=== PATIENT | female | born 1990 | race Caucasian/White ===

== ENCOUNTER 2019-05-16 11:06 | Outpatient (CLI) | payer OTHER, SELFPAY ==
[2019-05-16 11:47] LABS: Basophils Percent Auto 0.5 % (0.2-1.2); Eosinophils Absolute Auto 0.1 K/mm3 (0-0.3); Eosinophils Percent Auto 1.1 % (0-4.4); Hematocrit 35.6 % (37.0-47.0); Hemoglobin 11.6 g/dL (12.0-15.0); Immature Granulocyte Absolute 0.02 K/mm3 (0.00-0.031); Immature Granulocyte Percent A 0.3 % (0-0.5); Lymphocytes Absolute Auto 1.74 K/mm3 (0.9-3.2); Lymphocytes Percent Auto 26.3 % (18.3-44.2); Mean Corpuscular HGB Conc 32.6 g/dl (32-36); Mean Corpuscular Hemoglobin 27.1 pg (26-34); Mean Corpuscular Volume 83.2 fl (80-100); Mean Platelet Volume 10.2 fl (7.4-10.4); Monocytes Absolute Auto 0.5 K/mm3 (0.1-0.6); Monocytes Percent Auto 6.8 % (2.6-8.5); Neutrophils Absolute Auto 4.3 K/mm3 (1.3-6.7); Platelet Count Result 214 k/mm3 (150-375); Red Blood Count 4.28 M/mm3 (4.2-5.4); White Blood Count 6.6 K/mm3 (4.5-10.0)
[2019-05-16 11:53] LABS: Add Urine Microscopic? YES; Appearance Urine Clear (Clear); Bilirubin Urine Negative (Negative); Blood Urine Negative (Negative); Color Urine Yellow (Yellow); Glucose Urine UA Negative (Negative); Ketones Urine Negative (Negative); Leukocyte Esterase Ur Trace LEU/UL (NEGATIVE); Mucus Urine Rare /lpf; Nitrate Urine Negative (Negative); Protein Urine Negative (Negative); RBC Urine 0-2 /hpf (0-2); Specific Grav Ur 1.026 (1.001-1.035); Squamous Epithelial Cell Urine Moderate /hpf (Few); Urobilinogen Urine Negative mg/dL (<2.0); WBC Urine 0-3 /hpf (0-3)
[2019-05-16 12:25] LABS: Vitamin D 25 Hydroxy 39.1 ng/mL
[2019-05-16 12:32] LABS: Hepatitis B Surface Antigen Negative (Negative); Rubella IgG Antibody 15.2 IU/ML
[2019-05-16 12:47] LABS: HIV 1/2 Ab P24 Ag Result Negative (Negative); Hepatitis C Virus Antibody Negative (Negative)
[2019-05-17 07:48] LABS: Rapid Plasma Reagin Non-Reactive (NonReactive)
[2019-05-21 11:42] LABS: Hematocrit 37.5 % (35.0-45.0); Hemoglobin 12.4 g/dL (11.7-15.5); MCH 28.2 pg (27.0-33.0); MCV 85.3 FL (80.0-100.0); RDW 13.9 % (11.0-15.0)
== END 2019-05-16 11:07 | disposition home or self-care (01) ==
PROVIDERS: PCP Emergency Medicine; Visit Provider Obstetrics & Gynecology
DX: Z34.01 Encounter for supervision of normal first pregnancy, first trimester (principal)
CPT/HCPCS: 36415; 81001; 82306; 83021; 84443; 85025; 86592; 86703; 86762; 86787; 86803; 86900; 86901; 87086; 87340; G0432

== ENCOUNTER 2019-10-09 12:26 | Outpatient (CLI) | payer OTHER, SELFPAY ==
[2019-10-09 13:49] LABS: Basophils Percent Auto 0.4 % (0.2-1.2); Eosinophils Absolute Auto 0.1 K/mm3 (0-0.3); Eosinophils Percent Auto 1.2 % (0-4.4); Hematocrit 34.4 % (37.0-47.0); Hemoglobin 11.9 g/dL (12.0-15.0); Immature Granulocyte Absolute 0.05 K/mm3 (0.00-0.031); Immature Granulocyte Percent A 0.5 % (0-0.5); Lymphocytes Absolute Auto 2.11 K/mm3 (0.9-3.2); Mean Corpuscular HGB Conc 34.6 g/dl (32-36); Mean Corpuscular Hemoglobin 29.8 pg (26-34); Mean Corpuscular Volume 86.2 fl (80-100); Mean Platelet Volume 10.4 fl (7.4-10.4); Monocytes Absolute Auto 0.9 K/mm3 (0.1-0.6); Neutrophils Absolute Auto 7.4 K/mm3 (1.3-6.7); Neutrophils Percent Auto 69.9 % (45.5-73.1); Platelet Count Result 178 k/mm3 (150-375); Red Blood Count 3.99 M/mm3 (4.2-5.4); White Blood Count 10.6 K/mm3 (4.5-10.0)
[2019-10-09 14:01] LABS: Glucose 1 Hour PP 50gm Dose 76 mg/dL
== END 2019-10-09 12:27 | disposition home or self-care (01) ==
PROVIDERS: PCP Emergency Medicine; Visit Provider Obstetrics & Gynecology
DX: Z34.02 Encounter for supervision of normal first pregnancy, second trimester (principal)
CPT/HCPCS: 36415; 82947; 85025; 86850

== ENCOUNTER 2019-10-09 14:08 | Outpatient (CLI) | payer OTHER, SELFPAY ==
[2019-10-09] VITALS (7 sets, daily range): BP systolic 131–149; BP diastolic 82–91; PULSE 59–62
[2019-10-09 14:51] LABS: Basophils Absolute Auto 0.1 K/mm3 (0.0-0.1); Basophils Percent Auto 0.5 % (0.2-1.2); Eosinophils Absolute Auto 0.2 K/mm3 (0-0.3); Eosinophils Percent Auto 1.5 % (0-4.4); Hematocrit 34.7 % (37.0-47.0); Hemoglobin 11.9 g/dL (12.0-15.0); Immature Granulocyte Absolute 0.07 K/mm3 (0.00-0.031); Immature Granulocyte Percent A 0.7 % (0-0.5); Lymphocytes Absolute Auto 1.97 K/mm3 (0.9-3.2); Lymphocytes Percent Auto 19.1 % (18.3-44.2); Mean Corpuscular HGB Conc 34.3 g/dl (32-36); Mean Corpuscular Hemoglobin 29.9 pg (26-34); Mean Corpuscular Volume 87.2 fl (80-100); Mean Platelet Volume 10.5 fl (7.4-10.4); Monocytes Absolute Auto 0.9 K/mm3 (0.1-0.6); Monocytes Percent Auto 8.5 % (2.6-8.5); Neutrophils Absolute Auto 7.2 K/mm3 (1.3-6.7); Neutrophils Percent Auto 69.7 % (45.5-73.1); Platelet Count Result 177 k/mm3 (150-375); Red Blood Count 3.98 M/mm3 (4.2-5.4); Red Cell Distribution Width 13.1 % (11.5-14.5); White Blood Count 10.3 K/mm3 (4.5-10.0)
[2019-10-09 15:02] LABS: Add Urine Microscopic? YES; Appearance Urine Cloudy (Clear); Bilirubin Urine Negative (Negative); Blood Urine Negative (Negative); Color Urine Yellow (Yellow); Glucose Urine UA Negative (Negative); Ketones Urine Negative (Negative); Leukocyte Esterase Ur Negative LEU/UL (NEGATIVE); Mucus Urine Rare /lpf; Nitrate Urine Negative (Negative); Protein Urine 1+ mg/dL (Negative); RBC Urine 0-2 /hpf (0-2); Specific Grav Ur 1.026 (1.001-1.035); Squamous Epithelial Cell Urine Few /hpf (Few); Urobilinogen Urine Negative mg/dL (<2.0); WBC Urine 0-3 /hpf (0-3)
[2019-10-09 15:05] LABS: Alanine Aminotransferase 12 U/L (4-35); Albumin Level 3.6 g/dL (3.5-5.1); Alkaline Phosphatase 83 U/L (38-126); Anion Gap 6 mmol/L (8-16); Aspartate Amino Transferase 17 U/L (14-36); Bilirubin,Total 0.2 mg/dL (0.2-1.3); Blood Urea Nitrogen 8 mg/dL (7-17); Calcium 8.2 mg/dL (8.4-10.2); Carbon Dioxide 23 mmol/L (22-30); Chloride 106 mmol/L (98-107); Estimated Glomerular Filt Rate > 60; Glucose 73 mg/dL (65-105); Potassium 4.2 mmol/L (3.4-5.0); Sodium 135 mmol/L (137-145); Uric Acid 4.6 mg/dL (2.5-7.5)
[2019-10-09 15:09] LABS: Creatinine Urine 96.9 mg/dL; Total Protein Urine Random 13 mg/dL
[2019-10-09 15:12] LABS: Barbiturate Screen Urine Negative (Negative); Benzodiazepines Screen Urine Negative (Negative); Cannabinoid Screen Urine Positive (Negative); Cocaine Screen Urine Negative (Negative); Methadone Screen Urine Negative (Negative); Opiate Screen Urine Negative (Negative); Phencyclidine Screen Urine Negative (Negative)
[2019-10-09 15:13] LABS: Amphetamine Screen Urine Negative (Negative)
--- NOTE | 2019-10-09 15:53 | PC.NURSE ---
1408-Pt was sent over from office for elevated bp's and PIH workup
--- NOTE | 2019-10-09 15:54 | PC.NURSE ---
1521- called and read bp's and lab results. Orders received to discharge home with 24hr urine and instructions on taking bp twice daily and to call with greater than 160/110.
== END 2019-10-09 15:30 | disposition home or self-care (01) ==
LOC: ANHOBOP 14:16 → ANHLDR 14:17
PROVIDERS: PCP Emergency Medicine; Visit Provider Student in an Organized Health Care Education/Training Program
DX: O13.9 Gestational [pregnancy-induced] hypertension without significant proteinuria, unspecified trimester (principal)
CPT/HCPCS: 36415; 59025; 80053; 80307; 81001; 82570; 82947; 84156; 84550; 85025; 86850; 87086; 87088; 99199

== ENCOUNTER 2019-10-10 15:53 | Outpatient (NON) | payer OTHER, SELFPAY ==
[2019-10-10 15:59] VITALS: BMI 25.9
[2019-10-10 16:38] LABS: Collection Time Urine 24 HOURS
[2019-10-10 16:40] LABS: Patient Weight 142 Lbs
[2019-10-10 16:51] LABS: Creatinine Urine 92.2 mg/dL
[2019-10-10 17:08] LABS: Creatinine Clearance Urine 134.5 ml/min (75-125); Total Volume 24 Hour Urine 1000 ml
== END 2019-10-10 15:54 ==
LOC: ANHOBOP 15:56
PROVIDERS: PCP Emergency Medicine; Visit Provider Student in an Organized Health Care Education/Training Program
DX: O13.9 Gestational [pregnancy-induced] hypertension without significant proteinuria, unspecified trimester (principal); Z3A.00 Weeks of gestation of pregnancy not specified
CPT/HCPCS: 82575

== ENCOUNTER 2019-10-22 10:24 | Outpatient (RCR) | payer OTHER, SELFPAY ==
--- NOTE | ~2019-10-22 | US_ITS ---
EXAMINATION: US OB limited w BPP DATE: 10/22/2019 12:16 INDICATION: Gestational hypertension. Assess physical profile and amniotic fluid index. TECHNIQUE: Real-time pelvic ultrasound was performed. The interpreting radiologist was not present fo r the study. COMPARISON: None. FINDINGS: There is a single living fetus in vertex presentation. The placenta is posterior. heart rate i s 131 beats per minute (bpm). Normal amniotic fluid index of 10.3 cm (5th%-95%: 8.6-24.2 cm at 32 wee ks estimated gestational age) Biophysical profile performed by the technologist: breathing (30 sec sustained breathing in 30 minutes): 2 out of 2 movement (3 gross body movements in 30 minutes): 2 out of 2 tone (one episode of dliuafq-ulsvozche-xxkcmef limb movement): 2 out of 2 Amniotic fluid pocket (2 cm): 2 out of 2 Total score: 8 out of 8 IMPRESSION: 1. Single living fetus in vertex presentation with heart rate of 131 bpm. 2. Biophysical profile 8 out of 8. 3. Normal amniotic fluid index of 10.3 cm. Reviewed, dictated and finalized at location B.
[2019-10-22 11:28] LABS: Basophils Percent Auto 0.4 % (0.2-1.2); Eosinophils Percent Auto 0.2 % (0-4.4); Hematocrit 34.3 % (37.0-47.0); Hemoglobin 11.9 g/dL (12.0-15.0); Immature Granulocyte Absolute 0.03 K/mm3 (0.00-0.031); Immature Granulocyte Percent A 0.4 % (0-0.5); Lymphocytes Absolute Auto 0.87 K/mm3 (0.9-3.2); Lymphocytes Percent Auto 10.5 % (18.3-44.2); Mean Corpuscular HGB Conc 34.7 g/dl (32-36); Mean Corpuscular Hemoglobin 30.7 pg (26-34); Mean Corpuscular Volume 88.4 fl (80-100); Mean Platelet Volume 10.5 fl (7.4-10.4); Monocytes Absolute Auto 0.7 K/mm3 (0.1-0.6); Monocytes Percent Auto 8.4 % (2.6-8.5); Neutrophils Absolute Auto 6.7 K/mm3 (1.3-6.7); Neutrophils Percent Auto 80.1 % (45.5-73.1); Platelet Count Result 152 k/mm3 (150-375); Red Blood Count 3.88 M/mm3 (4.2-5.4); Red Cell Distribution Width 13.4 % (11.5-14.5); White Blood Count 8.3 K/mm3 (4.5-10.0)
[2019-10-22 11:42] LABS: Alanine Aminotransferase 13 U/L (4-35); Albumin Level 3.8 g/dL (3.5-5.1); Alkaline Phosphatase 86 U/L (38-126); Anion Gap 5 mmol/L (8-16); Aspartate Amino Transferase 21 U/L (14-36); Bilirubin,Total 0.5 mg/dL (0.2-1.3); Blood Urea Nitrogen 8 mg/dL (7-17); Calcium 8.2 mg/dL (8.4-10.2); Carbon Dioxide 24 mmol/L (22-30); Chloride 104 mmol/L (98-107); Estimated Glomerular Filt Rate > 60; Glucose 81 mg/dL (65-105); Potassium 3.8 mmol/L (3.4-5.0); Sodium 133 mmol/L (137-145)
[2019-10-22 12:15] VITALS: BP 137/84; PULSE 91
[2019-10-22 12:22] LABS: HIV 1/2 Ab P24 Ag Result Negative (Negative)
[2019-10-22 13:24] LABS: Collection Time Urine 24 HOURS
[2019-10-22 13:45] VITALS: BMI 27.3
[2019-10-22 13:54] LABS: Patient Weight 149 Lbs; Total Protein Urine Random 9 mg/dL
[2019-10-22 14:16] LABS: Creatinine Clearance Urine 165.1 ml/min (75-125); Total Protein Urine 24 Hr 135 MG/DAY (28-141); Total Volume 24 Hour Urine 1500 ml
[2019-10-23 11:41] LABS: Rapid Plasma Reagin Non-Reactive (NonReactive)
== END 2019-11-21 09:58 | disposition home or self-care (01) ==
LOC: ANHOBOP 10:24
PROVIDERS: Visit Provider Obstetrics & Gynecology
DX: O16.3 Unspecified maternal hypertension, third trimester (principal); E66.3 Overweight; Z11.4 Encounter for screening for human immunodeficiency virus [HIV]; Z3A.32 32 weeks gestation of pregnancy
CPT/HCPCS: 36415; 59025; 76815; 76819; 80053; 81050; 82575; 84156; 85025; 86592; 86703; G0432

== ENCOUNTER 2019-11-19 11:33 | Outpatient (RCR) | payer OTHER, SELFPAY ==
[2019-11-05 11:41] VITALS: BP 129/80; PULSE 80
[2019-11-12 16:42] VITALS: BP 122/76; PULSE 73
--- NOTE | ~2019-11-19 | US_ITS ---
EXAMINATION: US OB limited DATE: 11/05/2019 12:02 INDICATION: Gestational hypertension during third trimester TECHNIQUE: Real-time ultrasound of the pelvis was performed. The interpreting radiologist was not pre sent for the study. COMPARISON: 10/22/2019 FINDINGS: There is a single living fetus in vertex presentation. The placenta is posterior fundal. heart rate is 133 beats per minute (bpm). The amniotic fluid index is 15.0 cm, which is normal (5th%-95%: 8.1-24.8 cm at 34 weeks estimated gestational age). IMPRESSION: 1. Single living fetus in vertex presentation with heart rate of 133 bpm. 2. Normal amniotic fluid index of 15.0 cm. Reviewed, dictated and finalized at location A. IMPRESSION: 1. Single living fetus in vertex presentation with heart rate of 133 bpm . 2. Normal amniotic fluid index of 15.0 cm.
[2019-11-19 12:08] VITALS: BP 130/83; PULSE 88
== END 2019-11-21 09:57 | disposition home or self-care (01) ==
LOC: ANHOBOP 11:33
PROVIDERS: Visit Provider Obstetrics & Gynecology
DX: O16.3 Unspecified maternal hypertension, third trimester (principal); Z3A.34 34 weeks gestation of pregnancy; Z3A.35 35 weeks gestation of pregnancy; Z3A.36 36 weeks gestation of pregnancy
CPT/HCPCS: 36415; 59025; 76815; 80053; 83615; 84443; 84550

== ENCOUNTER 2019-11-19 13:06 | Outpatient (CLI) | payer OTHER, SELFPAY ==
[2019-11-19 14:19] LABS: Alanine Aminotransferase 13 U/L (4-35); Albumin Level 3.6 g/dL (3.5-5.1); Alkaline Phosphatase 95 U/L (38-126); Anion Gap 9 mmol/L (8-16); Aspartate Amino Transferase 31 U/L (14-36); Bilirubin,Total 0.3 mg/dL (0.2-1.3); Blood Urea Nitrogen 11 mg/dL (7-17); Calcium 8.7 mg/dL (8.4-10.2); Carbon Dioxide 21 mmol/L (22-30); Chloride 106 mmol/L (98-107); Estimated Glomerular Filt Rate > 60; Glucose 77 mg/dL (65-105); Potassium 4.5 mmol/L (3.4-5.0); Sodium 136 mmol/L (137-145); Uric Acid 4.3 mg/dL (2.5-7.5)
[2019-11-19 14:27] LABS: Lactate Dehydrogenase 528 U/L (313-618)
== END 2019-11-19 13:07 | disposition home or self-care (01) ==
PROVIDERS: Visit Provider Student in an Organized Health Care Education/Training Program
DX: O16.9 Unspecified maternal hypertension, unspecified trimester (principal); Z3A.00 Weeks of gestation of pregnancy not specified
CPT/HCPCS: 36415; 80053; 83615; 84443; 84550

== ENCOUNTER 2019-11-21 06:19 | Inpatient (IN) | payer OTHER, SELFPAY ==
[2019-11-21] VITALS (196 sets, daily range): BP systolic 103–160; BP diastolic 55–122; PULSE 56–93; RESP 14; TEMP 36.2–37.5; O2SAT 97–100; BMI 28.4
[2019-11-21 07:03] LABS: Basophils Percent Auto 0.4 % (0.2-1.2); Eosinophils Absolute Auto 0.1 K/mm3 (0-0.3); Eosinophils Percent Auto 1.3 % (0-4.4); Hematocrit 31.3 % (37.0-47.0); Immature Granulocyte Absolute 0.04 K/mm3 (0.00-0.031); Immature Granulocyte Percent A 0.4 % (0-0.5); Lymphocytes Absolute Auto 1.96 K/mm3 (0.9-3.2); Mean Corpuscular HGB Conc 35.1 g/dl (32-36); Mean Corpuscular Hemoglobin 30.6 pg (26-34); Mean Corpuscular Volume 87.2 fl (80-100); Mean Platelet Volume 10.5 fl (7.4-10.4); Monocytes Absolute Auto 0.6 K/mm3 (0.1-0.6); Monocytes Percent Auto 5.6 % (2.6-8.5); Neutrophils Absolute Auto 7.6 K/mm3 (1.3-6.7); Neutrophils Percent Auto 73.3 % (45.5-73.1); Platelet Count Result 175 k/mm3 (150-375); Red Blood Count 3.59 M/mm3 (4.2-5.4); Red Cell Distribution Width 12.6 % (11.5-14.5); White Blood Count 10.3 K/mm3 (4.5-10.0)
[2019-11-21] MEDS: LACTATED RINGERS 1,000 ML 125 ML IV CONT ×4 (07:13→17:21)
[2019-11-21] MEDS: OXYTOCIN 30 UNITS/NS 500 ML 30 UNITS/500 ML BAG IV CONT (07:14)
[2019-11-21 07:15] LABS: Alanine Aminotransferase 15 U/L (4-35); Albumin Level 3.8 g/dL (3.5-5.1); Alkaline Phosphatase 96 U/L (38-126); Anion Gap 6 mmol/L (8-16); Aspartate Amino Transferase 21 U/L (14-36); Bilirubin,Total 0.4 mg/dL (0.2-1.3); Blood Urea Nitrogen 15 mg/dL (7-17); Calcium 8.6 mg/dL (8.4-10.2); Carbon Dioxide 22 mmol/L (22-30); Chloride 108 mmol/L (98-107); Estimated Glomerular Filt Rate > 60; Glucose 101 mg/dL (65-105); Potassium 3.8 mmol/L (3.4-5.0); Sodium 136 mmol/L (137-145)
--- NOTE | 2019-11-21 07:34 | LDADM ---
This patient, Kassie Tadeo, was admitted to Labor/Delivery/Recovery 105 on 11/21/19 at 06:19. Plans for labor, pain management and were discussed with patient. Patient/family oriented to hospital policies and general routines including ID bracelet, bed and alarms, visiting hours, pain management, procedures, bathroom and other care routines, personal items, smoking policy, room service/diet and guest tray routines, infant security routines, and visiting hours. Patient/Family are encouraged to report perceived risks to care and to ask questions if they do not understand what they are told or what they should do. See OBIX for further documentation.
--- NOTE | 2019-11-21 09:33 | PM.IMHP ---
H&P: HPI History of Present Illness Date/Time: 11/21/19 09:33 Patient 29-year-old last menstrual period March 01, 2019. Patient is currently 37 weeks gestation with an estimated due date of December 12, 2019. Patient is dated by an ultrasound on April 25, 2019 at 7 weeks gestation. Patient presents to Labor and delivery for scheduled induction of labor secondary to gestational hypertension. Patient's 1st elevated blood pressure during this was approximately 19 weeks gestation. Patient has had intermittent elevated blood pressures since then. All laboratory testing has been within normal limits. All surveillance has also been within normal limits. Patient reports feeling well today. Reports occasional contractions. Denies any vaginal bleeding or leakage of fluid. Reports good movement. Patient also denies any headache, chest pain, shortness of breath, nausea, vomiting, right upper quadrant tenderness, or visual disturbances. Chief complaint: Induction of Labor Narrative: Kassie Tadeo is a 29 year old female Review of Systems Review of Systems: All systems reviewed & are unremarkable except as noted in HPI and below Constitutional: Constitutional: Reports as per HPI, Reports no additional constitutional complaints, Denies chills, Denies fever(s), Denies headache(s) and Denies night sweats Eyes: Eyes: Reports as per HPI and Reports no additional eye complaints ENT: Reports system reviewed and no additional complaints, except as documented, Reports as per HPI, Reports Normal hearing present and Denies headache(s) Cardiovascular: Cardiovascular: Reports as per HPI, Reports no additional cardiovascular complaints, Denies chest pain and Denies dyspnea Respiratory: Respiratory: Reports as per HPI, Reports no additional respiratory complaints, Denies cough and Denies dyspnea Gastrointestinal: Gastrointestinal: Reports as per HPI, Reports no additional gastrointestinal complaints, Denies abdominal pain, Denies change in bowel habits, Denies change in stool character, Denies nausea and Denies vomiting Genitourinary: Genitourinary: Reports no additional female genitourinary complaints, Reports as per HPI, Denies abnormal vaginal bleeding, Denies genital lesions, Denies hot flashes, Denies dyspareunia, Denies pelvic pain, Denies sexual dysfunction, Denies urinary incontinence, Denies vaginal discharge, Denies vaginal dryness and Denies vaginal odor Musculoskeletal: Musculoskeletal: Reports no additional musculoskeletal complaints and Reports as per HPI Integumentary/Breasts: Skin/Breast: Reports system reviewed and no additional complaints, except as docu, Reports as per HPI, Denies breast pain and Denies nipple discharge Neurologic: Reports system reviewed and no additional complaints, except as documented, Reports as per HPI, Reports Normal hearing present and Denies headache(s) Psychiatric: Psychiatric: Reports no additional psychiatric complaints, Reports as per HPI, Denies anxiety and Denies depression Endocrine: Endocrine: Reports no additional endocrine complaints and Reports as per HPI Hematologic/Lymphatic: Hematologic/Lymphatic: Reports no additional hematologic/lymphatic complaints and Reports as per HPI Allergic/Immunologic: Allergic/Immunologic: Reports no additional allergic/immunologic complaints and Reports as per HPI PMFSH Past Medical History Medical History Anxiety Encounter for supervision of normal primigravida in first trimester, antepartum Encounter for supervision of normal primigravida in second trimester, antepartum History of illicit drug use Vaginal delivery x 3 Family History Family History Other Unknown family medical history Social History Social History Years smoked: 12 Smoking status: Current every day smok
[2019-11-21 10:45] LABS: Amphetamine Screen Urine Negative (Negative); Barbiturate Screen Urine Negative (Negative); Benzodiazepines Screen Urine Negative (Negative); Cannabinoid Screen Urine Positive (Negative); Cocaine Screen Urine Negative (Negative); Methadone Screen Urine Negative (Negative); Opiate Screen Urine Negative (Negative); Phencyclidine Screen Urine Negative (Negative)
--- NOTE | 2019-11-21 10:56 | WPDANESEPP ---
Anes - Eval Pre Procedure Procedure: labor epidural Date/Time: 11/21/19 10:56 Surgeon: edith Preop Diagnosis: pain during labor Pre Op Diagnosis: Induction of Labor Patient Data Age: 29 Gender: F Height: 1.57 m Weight: 70.5 kg Last Vital Signs Temp 36.8 C 11/21/19 09:45 Pulse 69 11/21/19 10:55 BP 133/76 11/21/19 10:55 Pulse Ox 99 11/21/19 10:52 Allergies Allergy/AdvReac Type Severity Reaction Status Date / Time No Known Allergies Allergy Verified 11/19/19 12:17 Home Medications Medication Instructions Recorded Confirmed Type PNV cmb#95-ferrous fumarate-FA 1 tablet PO DAILY 11/15/19 11/21/19 History [] Laboratory Tests 11/21/19 11/21/19 11/21/19 06:51 06:51 06:51 WBC 10.3 K/mm3 H K/mm3 (4.5-10.0) RBC 3.59 M/mm3 L M/mm3 (4.2-5.4) Hgb 11.0 g/dL L g/dL (12.0-15.0) Hct 31.3 % L % (37.0-47.0) MCV 87.2 fl fl (80-100) MCH 30.6 pg pg (26-34) MCHC 35.1 g/dl g/dl (32-36) RDW 12.6 % % (11.5-14.5) Plt Count 175 k/mm3 k/mm3 (150-375) MPV 10.5 fl H fl (7.4-10.4) Immature Gran % (Auto) 0.4 % % (0-0.5) Neut % (Auto) 73.3 % H % (45.5-73.1) Lymph % (Auto) 19.0 % % (18.3-44.2) [place] % (Auto) 5.6 % % (2.6-8.5) Eos % (Auto) 1.3 % % (0-4.4) Baso % (Auto) 0.4 % % (0.2-1.2) Lymph # (Auto) 1.96 K/mm3 K/mm3 (0.9-3.2) [place] # (Auto) 0.6 K/mm3 K/mm3 (0.1-0.6) Eos # (Auto) 0.1 K/mm3 K/mm3 (0-0.3) Baso # (Auto) 0.0 K/mm3 K/mm3 (0.0-0.1) Abs Immat Gran (auto) 0.04 K/mm3 H K/mm3 (0.00-0.031) Absolute Neuts (auto) 7.6 K/mm3 H K/mm3 (1.3-6.7) Absolute Nucleated RBC 0.0 K/mm3 K/mm3 (0.0-0.012) Nucleated RBC % 0.0 % % (0.0-0.2) Sodium Potassium Chloride Carbon Dioxide Anion Gap BUN Creatinine Estim Creat Clear Calc Estimated GFR Glucose Calcium Total Bilirubin AST ALT Alkaline Phosphatase Total Protein Albumin Urine Opiates Screen Urine Methadone Screen Ur Barbiturates Screen Ur Phencyclidine Scrn Ur Amphetamine Screen U Benzodiazepines Scrn Urine Cocaine Screen U Cannabinoids Screen RPR Pending Blood Type AB Positive Antibody Screen Negative 11/21/19 11/21/19 06:51 08:00 WBC RBC Hgb Hct MCV MCH MCHC RDW Plt Count MPV Immature Gran % (Auto) Neut % (Auto) Lymph % (Auto) [place] % (Auto) Eos % (Auto) Baso % (Auto) Lymph # (Auto) [place] # (Auto) Eos # (Auto) Baso # (Auto) Abs Immat Gran (auto) Absolute Neuts (auto) Absolute Nucleated RBC Nucleated RBC % Sodium 136 mmol/L L mmol/L (137-145) Potassium 3.8 mmol/L mmol/L (3.4-5.0) Chloride 108 mmol/L H mmol/L (98-107) Carbon Dioxide 22 mmol/L mmol/L (22-30) Anion Gap 6 mmol/L L mmol/L (8-16) BUN 15 mg/dL mg/dL (7-17) Creatinine 0.60 mg/dL L mg/dL (0.7-1.0) Estim Creat Clear Calc Not Reportable Estimated GFR > 60 (59 - ) Glucose 101 mg/dL mg/dL (65-105) Calcium 8.6 mg/dL mg/dL (8.4-10.2) Total Bilirubin 0.4 mg/dL mg/dL (0.2-1.3) AST 21 U/L U/L (14-36) ALT 15 U/L U/L (4-35) Alkaline Phosphatase 96 U/L U/L (38-126) Total Protein 7.0 g/dL g/dL (6.3-8.2) Albumin 3.8 g/dL g/dL
--- NOTE | 2019-11-21 19:39 | PM.OBPRVD ---
OB - Delivery Note Procedure Delivery date: 11/21/19 Procedure: Patient is a 29-year-old G4 now P4004 who presented to labor and delivery on 11/21/2019 at 37 weeks gestation for scheduled induction of labor secondary to gestational hypertension. Patient was started on Pitocin for labor induction. Cervical exam was approximately 2 cm dilated at time of presentation. Artificial rupture membranes was performed at 9:30 a.m. Clear fluid was noted. Patient continued to make progressive cervical change throughout the remainder of the morning and afternoon. She became uncomfortable and requested an epidural for pain management which was placed without difficulty. Pitocin was continuously titrated throughout the afternoon and evening. She continued to make cervical change and was noted to be fully dilated at 7:03 p.m. Patient was encouraged to push and found be pushing well. She was prepped and draped for delivery. At 7:25 p.m., patient delivered head atraumatically without difficulty. Occiput restituted to maternal left side. The 's neck, shoulders, and rest of body delivered quickly afterwards. A nuchal cord x1 was noted and reduced. was crying spontaneously. 's nose and mouth were suctioned with bulb suction. Delayed cord clamping was performed for approximately 60 seconds. The cord was clamped and cut and the infant was placed on maternal abdomen where care was assumed by awaiting nursing staff. A segment of cord was collected for cord gases. Cord blood was collected. The placenta was delivered spontaneously and intact. A moderate amount of blood was noted gushing from vagina. Vigorous bimanual massage was performed and bleeding subsided. Straight catheterization was performed with a minimal amount of clear urine returned. No further bleeding was noted. On inspection no lacerations were noted. Estimated blood loss for entire delivery was 300 cc. The patient was cleansed and dried. The infant was a live-born male infant, Apgars 8 and 9, weighing 5 lb 12 oz. Both mother and baby doing well at end of delivery. events: Induced HTN and Labor Induction Induction method: per pitocin protocol Delivery augmentation: rupture of membranes Delivery monitor: external FHT and external uterine Route of delivery: Episiotomy description: None Laceration description: None Specimen: Yes (placenta and cord, cord blood, cord gases) Estimated blood loss (mL): 300 Anesthesia type: Epidural Disposition: floor Complications: No immediate complications Baby Date of : 11/21/19 Time of : 19:25 Weeks of gestation at delivery: 37 Infant gender: Male Weight (pounds): 5 Weight (ounces): 12 presentation: vertex position: Left Occiput Anterior Placenta delivery description: Spontaneous cord vessel description: 3 Vessels, Nuchal Cord (x1) and Clamped/Cut score one minute: 8 score five minutes: 9
--- NOTE | 2019-11-21 19:48 | WPDHPUPDATE1 ---
History and Physical Update Update Date/Time: 11/21/19 19:48 History and Physical has been reviewed, including an updated exam of the patient. There are NO changes in the patient's condition. Risks, benefits, and alternatives have been discussed and questions answered. Patient agrees to proceed with procedure.
[2019-11-21] MEDS: OXYTOCIN 30 UNITS/NS 500 ML 30 UNITS/500 ML BAG 125 UNITS IV CONT (19:58)
[2019-11-21] MEDS: IBUPROFEN 600 MG TABLET PO (20:58)
[2019-11-22] MEDS: ACETAMINOPHEN 325 MG TABLET 650 MG PO (00:42)
[2019-11-22] MEDS: IBUPROFEN 600 MG TABLET PO ×3 (04:51→16:14)
[2019-11-22 05:20] LABS: Hematocrit 30.3 % (37.0-47.0); Hemoglobin 10.3 g/dL (12.0-15.0)
[2019-11-22] MEDS: MULTIVIT/MIN/PREN/FOL AC/IRON TABLET 1 TAB PO (07:24)
[2019-11-22] MEDS: DOCUSATE SODIUM 100 MG CAPSULE PO ×2 (07:25→16:15)
[2019-11-22 07:28] VITALS: BP 126/91; PULSE 75; RESP 18; TEMP 36.4
--- NOTE | 2019-11-22 08:16 | WPDANLDPN2 ---
Anes-Prog Note L&D Date/Time: 11/22/19 08:16 Comfortable throughout: labor and delivery Neuraxial method: epidural Epidural/Spinal procedure site: clean & non-tender Neuro status: Neuro function grossly intact. Cardiovascular status: normal Respiratory status: normal Airway patency: baseline Mental status: baseline Post-Op hydration status: normal Vital Signs: Last Vital Signs Temp 36.4 C 11/22/19 07:28 Pulse 75 11/22/19 07:28 Resp 18 11/22/19 07:28 BP 126/91 H 11/22/19 07:28 Pulse Ox 100 11/21/19 22:45 Pain score (VAS): 2 I/O: Intake & Output 11/21/19 11/22/19 11/22/19 23:59 07:59 15:59 Intake Total 1100 Output Total 900 Balance 200 Post-procedural complaints: none Patient feedback: Patient satisfied with anesthetic care.
--- NOTE | 2019-11-22 08:44 | P.PNOB_ITS ---
OB - PN: Subj Subjective Date/time seen: 11/22/19 08:44 Patient doing well this morning. Denies significant pain. Well controlled with medication. Denies any headache, chest pain, shortness of breath, nausea, v omiting, right upper quadrant tenderness, or visual disturbances. Minimal lochia. Ambulating well. OB - PN: Obj Data Labs CBC & Chem 7: 11/22/19 04:58 11/21/19 06:51 Labs: Laboratory Results - last 24 hr 11/21/19 11/22/19 08:00 04:58 Hgb 10.3 L Hct 30.3 L Urine Opiates Screen Negative Urine Methadone Screen Negative Ur Barbiturates Screen Negative Ur Phencyclidine Scrn Negative Ur Amphetamine Screen Negative U Benzodiazepines Scrn Negative Urine Cocaine Screen Negative U Cannabinoids Screen Positive A OB - PN A/P Assessment and Plan (1) Normal spontaneous vaginal delivery: Code(s): O80 - Encounter for full-term uncomplicated delivery Status: Acute Assessment and Plan: PPD #1 doing well continue routine care anticipate dc home tomorrow (2) Gestational hypertension: Code(s): O13.9 - Gestational [-induced] hypertension without significant proteinuria, unspecified trimester Status: Acute Assessment and Plan: pt with GHTN BP 120-140z/70-90s asymptomatic will continue to monitor Time Spent With Patient Time: Total time spent is greater than 50% in coordination of care (as documented) at patient's floor/unit and/or counseling patient: Exam Const: General: comfortable and no acute distress GI: GI Palp: Yes Soft to palpation, No Tenderness to palpation present (GI) and Yes Other GI palpation findings present (fundus below umbilicus) Extrem: Right lower extremity: edema Left lower extremity: edema Other: no calf tenderness
[2019-11-22 09:15] LABS: Rapid Plasma Reagin Non-Reactive (NonReactive)
--- NOTE | 2019-11-22 10:16 | PCCCNOTE ---
Addendum entered by TRACE Arredondo 11/25/19 14:16: Received call from [facility] worker Estela who reports the Department will contact mom to offer services due to her past history of substance use. Per Estela she will reach out to pt. today. Estela is aware baby's meconium is negative for all substances. [facility] be contacted at [phone] Original Note: Care Coordination Consult Met with pt. today who reports she lives at home with FOB Duong. This is Duong and pt.'s 4th child. Pt. reports she has all necessary belongings at home including a crib, car seat, bottles, diapers and other supplies. Pt. reports she plans to breast feed or bottle feed at discharge. Pt. has supportive family including Duong. Pt. states she has used WIC and healthy family services before and will likely apply again. Pt. was provided resources. Pt. reports she was not aware that she tested positive for THC at admission. Pt. reports that she does actively use marijuana and does so recreationally. Pt. reports she does marijuana for fun, denies any other substance use. Pt. does state she does not smoke in front of her other children. Pt. denies that she over uses marijuana or is addicted to the substance. Pt. denies any services or supports regarding substance use cessation. [facility] online report was submitted reference ID [id number]. Will follow.
[2019-11-22 16:00] VITALS: BP 124/88; PULSE 65; RESP 18; TEMP 36.8
[2019-11-22 19:35] VITALS: BP 142/95; PULSE 74; RESP 14; TEMP 36.7; O2SAT 100
[2019-11-23 07:00] VITALS: BP 133/91; PULSE 62; RESP 18; TEMP 36.9
[2019-11-23] MEDS: DOCUSATE SODIUM 100 MG CAPSULE PO (07:10)
[2019-11-23] MEDS: MULTIVIT/MIN/PREN/FOL AC/IRON TABLET 1 TAB PO (07:10)
[2019-11-23] MEDS: IBUPROFEN 600 MG TABLET PO (07:10)
--- NOTE | 2019-11-23 10:34 | PM.OBPNVD ---
OB - PN: Subj Subjective Date/time seen: 11/23/19 10:34 Interval history: Doing well. Pain well controlled Ambulating and urinating without difficulty. Tolerating regular diet Denies [place]/Cp/SOB/Vision problems. Lochia is less than her menses baby boy doing well and BF. Patient comments: pain well controlled, tolerating diet and flatus present [place] baby status: doing well and nursing well feeding status: exclusively breast feeding OB - PN: Obj Data Labs CBC & Chem 7: 11/22/19 04:58 11/21/19 06:51 OB - PN A/P Plan day: 2 Plan: routine care, discharge home, follow up 6 weeks (post exam) and other (f/u in 1 week for Bp checkup) Comments: BF instructed. Desires infant to be circumcised. procedure discussed as well as risk i.e infection/bleeding/injury to penis. pt voiced verbalized. Informed consent obtained. Time Spent With Patient Time: Total time spent is greater than 50% in coordination of care (as documented) at patient's floor/unit and/or counseling patient: Time with patient: 15 - 25 minutes Review of Systems Constitutional: Constitutional: Reports as per HPI, Denies chills and Denies headache(s) Cardiovascular: Cardiovascular: Reports as per HPI Respiratory: Respiratory: Reports as per HPI, Denies chest congestion, Denies cough and Denies dyspnea Gastrointestinal: Gastrointestinal: Reports as per HPI, Denies abdominal pain, Denies nausea and Denies vomiting Genitourinary: Genitourinary: Reports no additional female genitourinary complaints Exam Const: General: comfortable, no acute distress, alert and awake Orientation/consciousness: patient oriented x3 Resp: Effort & Inspection: normal respiratory effort Auscultation: clear to auscultation bilaterally Cardio: Rate: regular rate GI: Auscultation: normal bowel sounds Other: Fundus firm below umbilicus
--- NOTE | 2019-11-23 10:37 | PM.OBDSVD ---
DS: Admitting Diagnosis Admitting Diagnosis Admitting Diagnosis: Induction of Labor DS: Discharge Diagnosis Discharge Diagnosis (1) Normal spontaneous vaginal delivery: Code(s): O80 - Encounter for full-term uncomplicated delivery Status: Acute OB - DS: Summary OB Procedures : None OB Procedures Intrapartum: Spontaneous Vag Delivery OB Procedures: : None Peripartum Data Infant Delivery Method: Natural Vaginal complications: none Status at Discharge Functional status at discharge: independent ambulation Overall status at discharge: patient is progressing back to baseline Time Spent with Patient Time attestation: Total time spent providing and/or coordinating discharge services: Time spent: Less than 30 minutes Exam Const: General: comfortable, no acute distress, alert and awake Orientation/consciousness: patient oriented x3 Limitations: no limitations Resp: Effort & Inspection: normal respiratory effort Auscultation: clear to auscultation bilaterally Cardio: Rate: regular rate GI: Inspection: non-distended GI Palp: Yes Soft to palpation and No Tenderness to palpation present (GI) Auscultation: normal bowel sounds Other: Fundus firm below umbilicus Psych: Appearance: grossly normal Affect: normal affect Attitude: cooperative Thought content: Yes Normal thought content present Judgement: Good judgement present (Psych) DS: Data Data Completed and Pending Pending studies at discharge: Pending at discharge 11/21/19 19:56 Surgical [PTH] Routine Discharge Plan Discharge Attending physician on discharge: Telma Delgadillo Discharging Clinician: Telma Delgadillo Patient Disposition: Home, Self-Care Activity: may drive after 2 weeks, as tolerated and pelvic rest Diet: regular Discharge Instructions: Education: Mom and Baby Guide Given to: Mother Follow-Up: Call your delivering provider's office for an appointment to be seen in: 4-6 Weeks Mom and baby should come to the [facility] for the follow-up appointment. Appointment Date/Time: November 25, 2019 at 11:30 am What to expect at your follow-up visit: Blood Pressure Check Physical Assessment Call [phone] if you are unable to keep your appointment time. BREAST CARE: * Wear a snug supportive bra. * For engorgement discomfort: Breast Feeding: * Apply warm moist washcloths * Express milk as needed to relieve engorgement * Wear loose clothing * For sore nipples: * Identify correct latch-on * Apply warm moist washcloths before and after nursing * Air dry nipples after nursing * May apply Lansinoh cream to nipples EPISIOTOMY/PERINEAL CARE: * Until bleeding stops, use your alejandra bottle after urinating * Change your pad frequently throughout the day * You may take sitz baths several times a day (fill your bathtub with warm water and soak for 20 minutes.) Do NOT bathe in the water * No tub baths until seen by your physician - You may shower ACTIVITY: * Rest as much as possible. * Do not exercise or lift anything heavier than your baby (such as laundry or other children.) * Avoid stairs or driving as much as possible. * Do not put anything into the vagina. No douching, tampons, or sexual activity until seen by physician. NOTIFY PHYSICIAN IF YOU HAVE ANY QUESTIONS OR IF ANY OF THE FOLLOWING SYMPTOMS OCCUR: * If your Vaginal area becomes red, swollen, or more painful than what you have experienced in the hospital. * If your vaginal bleeding becomes foul smelling. * If your vaginal bleeding becomes more heavy than a period or if your bleeding changes from pink to bright red. However, you may pass an occasional walnut-sized clot once or twice for the first week . * If you experience a sharp, shooting pain in your calves. * If you discover a hard, reddened area on your breast or if you experience f
[2019-11-25 12:10] VITALS: BP 149/92; PULSE 78; RESP 16; TEMP 36.5; O2SAT 98
== END 2019-11-23 12:50 | disposition home or self-care (01) | DRG 560 ==
LOC: ANHOB2 11-23 12:14 → ANHLDR 11-25 11:06 → ANHOB2 11-25 11:06
PROVIDERS: Admitting Provider Student in an Organized Health Care Education/Training Program; Visit Provider Obstetrics & Gynecology
DX: O13.4 Gestational [pregnancy-induced] hypertension without significant proteinuria, complicating childbirth (principal); O76 Abnormality in fetal heart rate and rhythm complicating labor and delivery; O69.1XX0 Labor and delivery complicated by cord around neck, with compression, not applicable or unspecified; O99.334 Smoking (tobacco) complicating childbirth; F17.290 Nicotine dependence, other tobacco product, uncomplicated; Z37.0 Single live birth; Z3A.37 37 weeks gestation of pregnancy
CPT/HCPCS: 36415; 80053; 80307; 85014; 85018; 85025; 86592; 86850; 86900; 86901; 88307; A9270; J0131; J2590; J2795; J7120